=== PATIENT | female | born 1965 | race Caucasian/White ===

== ENCOUNTER 2016-12-11 12:28 | Emergency (ER) | payer MEDICARE, MEDICAID ==
--- NOTE | 2016-12-11 12:59 | UC ---
Complaint Female HPI - HPI Summary HPI Summary: 51 YEAR OLD FEMALE PRESENTS WITH COMPLAINS OF URINARY FREQUENCY AND SUPRA PUBIC PAIN. - History Of Current Complaint Stated Complaint: URINARY Time Seen by Provider: 12/11/16 12:58 - Allergies/Home Medications Allergies/Adverse Reactions: Allergies Allergy/AdvReac Type Severity Reaction Status Date / Time No Known Allergies Allergy Verified 12/11/16 13:10 Home Medications: Home Medications Escitalopram (NF) [Lexapro 20 mg (NF)] 20 mg PO DAILY 12/11/16 [History Confirmed 12/11/16] buPROPion SR TAB* [Wellbutrin SR TAB*] 100 mg PO DAILY 12/11/16 [History Confirmed 12/11/16] metFORMIN* [Glucophage 500 MG TAB *] 500 mg PO BID 12/11/16 [History Confirmed 12/11/16] PMH/Surg Hx/FS Hx/Imm Hx - Surgical History Surgical History: Yes Surgery Procedure, Year, and Place: 3 . TUBAL. HERNIA. EAR TUBES ADOLESCENT - Family History Known Family History: Positive: None - Social History Alcohol Use: None Substance Use Type: None Smoking Status (MU): Former Smoker When Did the Patient Quit Smoking/Using Tobacco: 6 MO Review of Systems Constitutional: Negative Skin: Negative Eyes: Negative ENT: Negative Respiratory: Negative Cardiovascular: Negative Gastrointestinal: Abdominal Pain Genitourinary: Negative Motor: Negative Neurovascular: Negative Musculoskeletal: Negative Neurological: Negative Psychological: Negative All Other Systems Reviewed And Are Negative: Yes Physical Exam Triage Information Reviewed: Yes Eye Exam: Normal ENT Exam: Normal Dental Exam: Normal Neck exam: Normal Neck: Positive: 1 Respiratory Exam: Normal Cardiovascular Exam: Normal Abdomen Description: Positive: Other: - SUPRAPUBIC PAIN Musculoskeletal Exam: Normal Neurological Exam: Normal Psychological Exam: Normal Skin Exam: Normal Complaint Female Dx - Differential Dx/Diagnosis Provider Diagnoses: DYSURIA. URINARY FREQUENCY Discharge - Discharge Plan Condition: Stable Disposition: HOME Prescriptions: Cephalexin CAP* [Keflex CAP*] 500 mg PO TID #21 cap Patient Education Materials: Dysuria (ED) Referrals: Jaida Mabry NP [Primary Care Provider] - If Needed
[2016-12-11 13:10] VITALS: BP 123/73
== END 2016-12-11 13:40 | disposition home or self-care (01) ==
LOC: UCCORT 12:28
DX: R30.0 Dysuria (principal); R35.0 Frequency of micturition; Z87.891 Personal history of nicotine dependence
CPT/HCPCS: 81003; 87086; 99212; G0463

== ENCOUNTER 2017-02-04 17:19 | Emergency (ER) | payer MEDICARE, MEDICAID ==
[2017-02-04 18:01] VITALS: BP 140/74
--- NOTE | 2017-02-04 18:02 | UC ---
Knee Pain HPI - HPI Summary HPI Summary: left knee pain after a porch broke that she was standing on jarring her knee - History of Current Complaint Chief Complaint: UCLowerExtremity Stated Complaint: KNEE INJURY Time Seen by Provider: 02/04/17 18:10 Hx Obtained From: Patient Hx Last Menstrual Period: unknown, mirena ?: No Onset/Duration: Sudden Onset, Lasting Days - 1 Severity Initially: Moderate Severity Currently: Moderate Location Of Injury: left knee distally Character: Aching Aggravating Factor(s): Movement, Weight Bearing Alleviating Factor(s): Nothing Associated Signs And Symptoms: Positive: Negative Able to Bear Weight: Yes - Allergies/Home Medications Allergies/Adverse Reactions: Allergies Allergy/AdvReac Type Severity Reaction Status Date / Time No Known Allergies Allergy Verified 02/04/17 17:48 PMH/Surg Hx/FS Hx/Imm Hx Previously Healthy: No Endocrine History: Diabetes Psychological History: Depression - Surgical History Surgical History: Yes Surgery Procedure, Year, and Place: 3 . TUBAL. HERNIA. EAR TUBES [facility]OLESC[facility] - Family History Known Family History: Positive: None - Social History Occupation: Unemployed Lives: With Family Alcohol Use: None Substance Use Type: None Smoking Status (MU): Former Smoker When Did the Patient Quit Smoking/Using Tobacco: 6 MO Review of Systems Constitutional: Negative Skin: Negative Eyes: Negative ENT: Negative Respiratory: Negative Cardiovascular: Negative Gastrointestinal: Negative Genitourinary: Negative Motor: Negative Neurovascular: Negative Musculoskeletal: Arthralgia - left knee Neurological: Negative Psychological: Negative Is Patient Immunocompromised?: No All Other Systems Reviewed And Are Negative: Yes Physical Exam Triage Information Reviewed: Yes Appearance: Well-Appearing, Pain Distress - mild, Obese Vital Signs Reviewed: Yes Eye Exam: Normal Eyes: Positive: Conjunctiva Clear ENT Exam: Normal ENT: Positive: Normal ENT inspection, Hearing grossly normal. Negative: Nasal congestion, Nasal drainage, Trismus, Muffled/hoarse voice Dental Exam: Normal Neck exam: Normal Neck: Positive: Supple, Nontender Respiratory Exam: Normal Respiratory: Positive: Chest non-tender, No respiratory distress, No accessory muscle use Cardiovascular Exam: Normal Cardiovascular: Positive: RRR, Pulses Normal, Brisk Capillary Refill Musculoskeletal Exam: Normal Musculoskeletal: Positive: Strength Intact, ROM Intact, No Edema Neurological Exam: Normal Neurological: Positive: Alert, Muscle Tone Normal Psychological Exam: Normal Skin Exam: Normal Diagnostics - Radiology No standard instances Xray Interpretation: Positive (See Comments) - osteoarthritis, small joint transfusion Radiology Interpretation Completed By: Radiologist Re-Evaluation - Re-Evaluation First Eval Change: Improved - refused walker--shalonda wrap, cane Knee Pain Course/Dx - Course Course Of Treatment: rice, shalonda wrap, crutches/cane, ibuprofen follow with orthopedic MD - Differential Dx/Diagnosis Differential Diagnosis/HQI/PQRI: Contusion, Fracture (Closed), Internal Derangement Of Knee, Infection, Sprain, Strain Provider Diagnoses: Small joint effusion left knee, arthritis--left knee Discharge - Discharge Plan Condition: Stable Disposition: HOME Patient Education Materials: Knee Pain (ED), Hypertension (ED), RICE Therapy ( ED) Referrals: Satnam Soriano MD [Medical Doctor] - 4 Days Jaida Mabry NP [Primary Care Provider] - 2 Weeks
--- NOTE | 2017-02-04 19:19 | RAD ---
INDICATION: Left knee injury. TECHNIQUE: 4 views of the left knee were obtained. FINDINGS: The bones are normal alignment. No fracture is seen. There is a small joint effusion present. There is mild to moderate osteoarthritic change in the medial and lateral compartments and moderate osteoarthritic change in the patellofemoral compartment. IMPRESSION: 1. SMALL JOINT EFFUSION, NO FRACTURE IS SEEN. 2. MILD TO MODERATE OSTEOARTHRITIC CHANGE.
== END 2017-02-04 19:18 | disposition home or self-care (01) ==
LOC: UCEAST 17:19
DX: M25.462 Effusion, left knee (principal); M17.12 Unilateral primary osteoarthritis, left knee; E11.9 Type 2 diabetes mellitus without complications; F32.9 Major depressive disorder, single episode, unspecified; Z87.891 Personal history of nicotine dependence
CPT/HCPCS: 99212; G0463

== ENCOUNTER 2017-08-24 16:18 | Emergency (ER) | payer MEDICARE, MEDICAID ==
[2017-08-24 18:54] VITALS: BP 145/99
--- NOTE | 2017-08-24 19:16 | UC ---
Back Pain HPI - HPI Summary HPI Summary: This obese lady comes to the urgent care today with chief complaint of back pain thoracic and lumbar spine. She feels that the pain is because of weight shifting after she's lost 40 pounds. She takes one Percocet daily for general body aches. She believes she has some bulging and ruptured disks but could not state where she believed she learned that data from and what study was done to diagnose the condition. Today she states she was getting out of bed "3 days ago " felt a drink shifting and a bad pop in her back and has had severe pain ever since - History of Current Complaint Chief Complaint: UCBackPain Stated Complaint: BACK PAIN Time Seen by Provider: 08/24/17 18:58 Hx Obtained From: Patient Hx Last Menstrual Period: unknown, mirena ?: No Onset/Duration: Sudden Onset, Lasting Days - 3, Still Present Timing: Constant Severity Initially: Severe Severity Currently: Severe Pain Intensity: 10 Pain Scale Used: 0-10 Numeric Back Pain: Is Diffuse Character: Aching, Throbbing, Spasmodic, Stiffness Aggravating Factor(s): Movement, Lifting, Bending, Walking Alleviating Factor(s): Nothing Related History: Previous Back Injury - Patient reports previous back problems - Allergies/Home Medications Allergies/Adverse Reactions: Allergies Allergy/AdvReac Type Severity Reaction Status Date / Time No Known Allergies Allergy Verified 02/04/17 17:48 PMH/Surg Hx/FS Hx/Imm Hx Previously Healthy: No - chronic pain Endocrine History: Diabetes Cardiovascular History: Hypertension - Surgical History Surgical History: Yes Surgery Procedure, Year, and Place: 3 . TUBAL. HERNIA CHILD. EAR TUBES ADOLESCENT - Family History Known Family History: Positive: None - Social History Occupation: Disabled Lives: With Family Alcohol Use: None Substance Use Type: None Smoking Status (MU): Former Smoker When Did the Patient Quit Smoking/Using Tobacco: 6 MO Review of Systems Constitutional: Negative Skin: Negative Eyes: Negative ENT: Negative Respiratory: Negative Cardiovascular: Negative Gastrointestinal: Negative Genitourinary: Negative Motor: Negative Neurovascular: Negative Musculoskeletal: Arthralgia Neurological: Negative Psychological: Negative Is Patient Immunocompromised?: No All Other Systems Reviewed And Are Negative: Yes Physical Exam Triage Information Reviewed: Yes Appearance: Well-Nourished, Pain Distress - upper and lower back pain, Obese Vital Signs: Initial Vital Signs Temp 98.2 F 04/17/18 18:44 Pulse 81 08/24/17 18:44 Resp 30 08/24/17 18:44 BP 145/99 08/24/17 18:44 Pulse Ox 97 08/24/17 18:44 Vital Signs Reviewed: Yes Eye Exam: Normal Eyes: Positive: Conjunctiva Clear ENT Exam: Normal ENT: Positive: Normal ENT inspection, Hearing grossly normal, Pharynx normal. Negative: Muffled voice, Hoarse voice, Dental tenderness Dental Exam: Normal Neck exam: Normal Neck: Positive: Supple, Nontender Respiratory Exam: Normal Respiratory: Positive: No respiratory distress, No accessory muscle use Cardiovascular Exam: Normal Cardiovascular: Positive: RRR, Pulses Normal, Brisk Capillary Refill Musculoskeletal Exam: Other Musculoskeletal: Positive: Other: - Dynabac is limited by obesity and pain Neurological Exam: Normal Neurological: Positive: Alert, Muscle Tone Normal Psychological Exam: Normal Skin Exam: Normal Diagnostics - Radiology No standard instances Xray Interpretation: Positive (See Comments) Radiology Interpretation Completed By: Radiologist - Mild to moderate degenerative disc disease no acute injuries Back Pain Course/Dx - Course Course Of Treatment: Oxycodone, Flexeril, ibuprofen, follow with pcp this week - Differential Dx/Diagnosis Provider Diagnoses: acute exacerbation of chronic back pain, elevated blood pressure without diagnosis of hypertension Discharge - Sign-Out/Discharge Documenting (check all that apply): Discharge - Discharge Plan Condition: Stable Disposition: HOME Prescriptions: Cyclobenzaprine TAB* [Flexeril 10 MG TAB*] 10 mg PO TID PRN #15 tab PRN Reason: muscle spasm oxyCODONE/Acetamin 5/325 MG* [Percocet 5/325 TAB*] 1 tab PO Q6H PRN #12 tab MDD 4 PRN Reason: pain Patient Education Materials: Hypertension (ED), Muscle Spasm (ED), Degenerative Disc Disease (ED) Referrals: Nathaly Palacios DIRECTOR OF EMERGENCY NURSING [Primary Care Provider] - If Needed - Billing Disposition and Condition Condition: STABLE Disposition: HOME
--- NOTE | 2017-08-24 20:32 | RAD ---
INDICATION: Back pain evaluate for compression fracture. COMPARISON: Comparison is made with a prior study from June 05, 2009. TECHNIQUE: 5 views of the lumbar spine were obtained including lateral, oblique, AP and a coned-down lateral view of the lumbar sacral junction. FINDINGS: The vertebra are in normal alignment. No fracture is seen. There is mild to moderate degenerative disc disease in the lower dorsal and upper lumbar spine. IMPRESSION: 1. NO EVIDENCE FOR FRACTURE. 2. MILD TO MODERATE DEGENERATIVE DISC DISEASE.
--- NOTE | 2017-08-24 20:34 | RAD ---
INDICATION: Back pain evaluate for compression fracture. COMPARISON: Comparison is made with a prior study from June 05, 2009. TECHNIQUE: AP and lateral films of the dorsal spine were obtained. FINDINGS: There is a mild dorsal scoliosis convex toward the right side. No fracture is seen. There is moderate degenerative disc disease in the mid and lower dorsal spine. IMPRESSION: 1. NO EVIDENCE FOR FRACTURE. 2. MODERATE DEGENERATIVE DISC DISEASE.
[2017-08-24] MEDS ORDERED: Cyclobenzaprine TAB* 10 MG PO ONE (20:48)
== END 2017-08-24 20:57 | disposition home or self-care (01) ==
LOC: UCCORT 16:18
DX: M54.5 Low back pain (principal); M51.34 Other intervertebral disc degeneration, thoracic region; M51.36 Other intervertebral disc degeneration, lumbar region; E11.9 Type 2 diabetes mellitus without complications; Z79.84 Long term (current) use of oral hypoglycemic drugs; I10 Essential (primary) hypertension; E66.9 Obesity, unspecified; Z87.891 Personal history of nicotine dependence
CPT/HCPCS: 72070; 72110; 99212; A9270-GY; G0463

== ENCOUNTER 2018-09-08 15:24 | Emergency (ER) | payer MEDICARE, MEDICAID ==
[2018-09-08 16:07] VITALS: BP 156/76
[2018-09-08] MEDS ORDERED: Albuterol/Ipratropium NEB.SOL* Albuterol 2.5 MG/Ipratropium 0.5 MG 3 ML INH ONE (16:12)
--- NOTE | 2018-09-08 16:44 | UC ---
Respiratory Complaint HPI - HPI Summary HPI Summary: 53-year-old woman comes in with a chief complaint of 8 days of upper respiratory tract infection symptoms and moved and anterior chest. Started with a runny nose and cough. It's moved down into her chest and she's wheezing. Patient reports she get this about once a year and she gets better with an albuterol inhaler prednisone and azithromycin. She had fevers when she first started with her illness no fevers now. She does produce sputum. She does not have any albuterol at home no history of asthma. - History of Current Complaint Chief Complaint: UCRespiratory Stated Complaint: chest congestion, and cough Time Seen by Provider: 09/08/18 16:03 Hx Last Menstrual Period: mirena Pain Intensity: 0 - Allergies/Home Medications Allergies/Adverse Reactions: Allergies Allergy/AdvReac Type Severity Reaction Status Date / Time No Known Allergies Allergy Verified 09/08/18 16:05 PMH/Surg Hx/FS Hx/Imm Hx Previously Healthy: Yes Endocrine History: Diabetes - Surgical History Surgical History: Yes Surgery Procedure, Year, and Place: 3 . TUBAL. HERNIA CHILD. EAR TUBES ADOLESCENT - Family History Known Family History: Positive: None - Social History Alcohol Use: None Substance Use Type: None Smoking Status (MU): Former Smoker When Did the Patient Quit Smoking/Using Tobacco: 6 MO Review of Systems All Other Systems Reviewed And Are Negative: Yes Constitutional: Positive: Fever Skin: Positive: Negative Eyes: Positive: Negative ENT: Positive: Nasal Discharge, Sinus Congestion Respiratory: Positive: Shortness Of Breath, Cough, Other - SEE HPI Cardiovascular: Positive: Negative Gastrointestinal: Positive: Negative Motor: Positive: Negative Neurovascular: Positive: Negative Musculoskeletal: Positive: Negative Neurological: Positive: Negative Psychological: Positive: Negative Is Patient Immunocompromised?: No Physical Exam Triage Information Reviewed: Yes Appearance: No Pain Distress, Well-Nourished, Ill-Appearing - MILD Vital Signs: Initial Vital Signs Temp 96.9 F 09/08/18 16:05 Pulse 96 09/08/18 16:05 Resp 24 09/08/18 16:05 BP 156/76 09/08/18 16:05 Pulse Ox 97 09/08/18 16:05 Vital Signs Reviewed: Yes Eye Exam: Normal Eyes: Positive: Conjunctiva Clear ENT: Positive: Nasal congestion Neck: Positive: Supple Respiratory: Positive: No respiratory distress, Wheezing - B/L Cardiovascular: Positive: RRR Musculoskeletal Exam: Normal Musculoskeletal: Positive: Strength Intact, ROM Intact Neurological Exam: Normal Neurological: Positive: Alert, Muscle Tone Normal Psychological Exam: Normal Psychological: Positive: Age Appropriate Behavior Skin Exam: Normal Respiratory Course/Dx - Course Course Of Treatment: DISCUSSED VIRAL VERSES BACTERIAL INFECTION AND THE ROLE OF ANTIBIOTICS. THE PATIENT PREFERS TO BE ON ANTIBIOTICS AT THIS TIME. - Differential Dx/Diagnosis Provider Diagnosis: Bronchitis with bronchospasm Discharge - Sign-Out/Discharge Documenting (check all that apply): Patient Departure All imaging exams completed and their final reports reviewed: No Studies - Discharge Plan Condition: Stable Disposition: HOME Prescriptions: Albuterol HFA INHALER* [Ventolin HFA Inhaler*] 2 puff INH Q4H PRN #1 mdi PRN Reason: Wheezing Azithromyxin PAM (NF) [Z-Pam (Zithromax) 250 mg tabs #6] 2 tab PO .TODAY, THEN 1 DAILY #6 tab predniSONE TAB* [Deltasone 20 MG TAB*] 40 mg PO DAILY #10 tab Patient Education Materials: Acute Bronchitis (ED), Bronchospasm (ED) Referrals: Nathaly Palacios, TIRE CLASSIFIER [Primary Care Provider] - Additional Instructions: FOLLOW UP WITH YOUR DOCTOR IF NOT COMPLETELY IMPROVED. GET REEVALUATED SOONER IF YOUR CONDITION WORSENS OR ANY QUESTIONS OR CONCERNS. - Billing Disposition and Condition Condition: STABLE Disposition: Home
== END 2018-09-08 16:56 | disposition home or self-care (01) ==
LOC: UCEAST 15:24
DX: J20.9 Acute bronchitis, unspecified (principal); E11.9 Type 2 diabetes mellitus without complications; Z87.891 Personal history of nicotine dependence
CPT/HCPCS: 99212; A9270-GY; G0463

== ENCOUNTER 2019-05-14 13:17 | Emergency (ER) | payer MEDICARE, MEDICAID ==
[2019-05-14 14:18] VITALS: BP 164/81
--- NOTE | 2019-05-14 14:28 | UC ---
Throat Pain/Nasal Gael HPI - HPI Summary HPI Summary: 53-year-old female who has had cold symptoms for approximately 1 week. She has no history of asthma however states when she gets sick she usually does have bronchitis with wheezing. She has been using her albuterol nebulizer at home without improvement. She states she has productive cough of greenish sputum. - History of Current Complaint Chief Complaint: UCRespiratory Stated Complaint: COUGH SORE THROAT Time Seen by Provider: 05/14/19 14:26 Hx Obtained From: Patient Hx Last Menstrual Period: Mirena IUD ?: No Onset/Duration: Gradual Onset Severity: Mild Pain Intensity: 4 Cough: Productive - Productive cough of greenish sputum. Associated Signs & Symptoms: Positive: Nasal Discharge - Allergies/Home Medications Allergies/Adverse Reactions: Allergies Allergy/AdvReac Type Severity Reaction Status Date / Time No Known Allergies Allergy Verified 05/14/19 14:08 Home Medications: Home Medications oxyCODONE/Acetam5/325MG PREPAK [Percocet 5/325 TAB*] 1 tab DAILY 05/14/19 [ History Confirmed 05/14/19] PMH/Surg Hx/FS Hx/Imm Hx Previously Healthy: Yes Endocrine History: Diabetes - Surgical History Surgical History: Yes Surgery Procedure, Year, and Place: 3 . TUBAL. HERNIA CHILD. EAR TUBES ADOLESCENT. D/C x2. lipoma removed LEFT forearm - Family History Known Family History: Positive: None, Non-Contributory - Social History Lives: With Family Alcohol Use: Rare Substance Use Type: None Smoking Status (MU): Former Smoker When Did the Patient Quit Smoking/Using Tobacco: 6 MO Review of Systems All Other Systems Reviewed And Are Negative: Yes ENT: Positive: Nasal Discharge, Sinus Congestion Respiratory: Positive: Cough - Productive cough of green sputum, with wheezing. Is Patient Immunocompromised?: No Physical Exam Triage Information Reviewed: Yes Appearance: Well-Appearing, No Pain Distress, Well-Nourished Vital Signs: Initial Vital Signs Temp 97.4 F 05/14/19 14:09 Pulse 84 05/14/19 14:09 Resp 22 05/14/19 14:09 BP 164/81 05/14/19 14:09 Pulse Ox 99 05/14/19 14:09 Vital Signs Reviewed: Yes Eyes: Positive: Conjunctiva Clear ENT: Positive: Pharynx normal, Nasal drainage - Clear nasal coryza., TMs normal , Uvula midline Neck: Positive: Supple, Nontender, No Lymphadenopathy Respiratory: Positive: No respiratory distress, No accessory muscle use, Rhonchi , Wheezing - Scattered rhonchi and wheezing throughout Cardiovascular: Positive: RRR, No Murmur, Pulses Normal, Brisk Capillary Refill Musculoskeletal Exam: Normal Neurological Exam: Normal Psychological Exam: Normal Skin Exam: Normal Throat Pain/Nasal Course/Dx - Course Course Of Treatment: DuoNeb treatment: Patient refuses stating she can do her albuterol treatments at home. Going to start her on a Z-Pam and prednisone taper. She requested Diflucan for possible yeast infection following the Z-Pam. She assured me she knows about the QT interval information(although she has taken in the past and never had a problem with it) but always waits until 3 or 4 days after she finishes a Z-Pam before she takes the Diflucan. - Differential Dx/Diagnosis Provider Diagnosis: Bronchitis Discharge ED - Sign-Out/Discharge Documenting (check all that apply): Patient Departure All imaging exams completed and their final reports reviewed: No Studies - Discharge Plan Condition: Fair Disposition: HOME Prescriptions: Azithromyxin PAM (NF) [Z-Pam (Zithromax) 250 mg tabs #6] 2 tab PO .TODAY, THEN 1 DAILY #6 tab Fluconazole 150 MG TAB* [Diflucan 150 MG TAB*] 150 mg PO UC ONCE 1 Days #1 tablet predniSONE 10 mg TAB [Deltasone 10 MG TAB*] 10 mg PO DAILY 12 Days #30 tab Patient Education Materials: Acute Bronchitis (ED) Referrals: Nathaly Palacios LEAD CARPENTER [Primary Care Provider] - Additional Instructions: Increase fluids, take the prednisone with food. Continue your albuterol treatments at home every 4 hours as needed for wheezing or tight cough. Follow- up with your primary care provider in 2 or 3 days if no improvement. - Billing Disposition and Condition Condition: FAIR Disposition: Home
[2019-05-14] MEDS ORDERED: Albuterol/Ipratropium NEB.SOL* Albuterol 2.5 MG/Ipratropium 0.5 MG 3 ML INH ONE (14:31)
== END 2019-05-14 14:47 | disposition home or self-care (01) ==
LOC: UCCORT 13:17
DX: J40 Bronchitis, not specified as acute or chronic (principal); E11.9 Type 2 diabetes mellitus without complications; Z87.891 Personal history of nicotine dependence
CPT/HCPCS: 99212; A9270-GY; G0463